=== PATIENT | female | born 1960 | race Caucasian/White ===

== ENCOUNTER 2024-01-22 05:35 | Day surgery (SDC) | payer OTHER ==
[~2024-01-22] VITALS: Ht 154.9 cm; Wt 92.7 kg
[2024-01-22] MEDS ORDERED: ACETAMINOPHEN 500 MG TABLET ONE (05:41)
[2024-01-22] MEDS ORDERED: CELECOXIB 100 MG CAPSULE ONE (05:42)
[2024-01-22] MEDS ORDERED: SCOPOLAMINE HYDROBROMIDE 1 MG PATCH .72 H (TRANSDERM-SCOP) TD ONE (05:43)
[2024-01-22] MEDS ORDERED: GABAPENTIN 300 MG CAPSULE ONE (05:43)
[2024-01-22] MEDS ORDERED: oxyCODONE HCL 10 MG TAB.ER.12H PO ONE (05:44)
[2024-01-22] MEDS: ACETAMINOPHEN 500 MG TABLET PO ONE (06:05)
[2024-01-22] MEDS: CELECOXIB 100 MG CAPSULE PO ONE (06:05)
[2024-01-22] MEDS: SCOPOLAMINE HYDROBROMIDE 1 MG PATCH .72 H (TRANSDERM-SCOP) TD ONE (06:05)
[2024-01-22] MEDS: GABAPENTIN 300 MG CAPSULE PO ONE (06:05)
[2024-01-22] MEDS ORDERED: NS 1000 ML IV.SOLN IV ONE (06:50)
[2024-01-22] MEDS ORDERED: TRANEXAMIC ACID 1,000 MG/10 ML VIAL ONE (06:50)
[2024-01-22] MEDS ORDERED: VANCOMYCIN HCL 1000 MG/VIAL IV ONE (06:50)
[2024-01-22] MEDS ORDERED: LR 1,000 ML IV.SOLN IV ONE (06:50)
[2024-01-22] MEDS ORDERED: BUPIVACAINE /PF 0.25% 10 ML VIAL INJ ONE (06:50)
[2024-01-22] MEDS ORDERED: LIDOCAINE 1% *INHALATION* MPF 5 ML VIAL INH ONE (06:50)
[2024-01-22] MEDS ORDERED: NS IRRIG SOLN 1000 ML IR ONE (06:50)
[2024-01-22] MEDS ORDERED: PROPOFOL 200MG/ 20ML VIAL (DIPRIVAN) IV ONE (06:50)
[2024-01-22] MEDS ORDERED: fentaNYL CITRATE/PF 100 MCG/2 ML AMP ONE (06:58)
[2024-01-22] MEDS ORDERED: MIDAZOLAM HCL 5 MG/5 ML VIAL ONE (06:59)
[2024-01-22] MEDS ORDERED: CEFAZOLIN SOD 2 GM in D5W 50 ML IV ONE (07:00)
[2024-01-22] MEDS: oxyCODONE HCL 10 MG TAB.ER.12H PO ONE (07:02)
[2024-01-22] MEDS ORDERED: DIPHENHYDRAMINE HCL 25 MG CAPSULE PO PRN (09:00)
[2024-01-22] MEDS ORDERED: METOCLOPRAMIDE HCL 10 MG/2 ML VIAL IVP PRN ×2 (09:00→09:15)
[2024-01-22] MEDS ORDERED: BISACODYL 10 MG/SUPPOSITORY RC PRN (09:00)
[2024-01-22] MEDS ORDERED: LACTULOSE 20 GM/30 ML UDC PO PRN (09:00)
[2024-01-22] MEDS ORDERED: LABETALOL 100 MG/ 20ML VIAL IVP PRN (09:15)
[2024-01-22] MEDS ORDERED: HYDROmorphone 1 MG/ML INJ. CARTRIDGE IVP PRN ×3 (09:15→11:00)
[2024-01-22] MEDS ORDERED: ONDANSETRON HCL 4 MG/2 ML VIAL IVP PRN ×2 (09:15→11:45)
[2024-01-22] MEDS ORDERED: ePHEDrine sulfate 50 MG/ML VIAL IVP PRN (09:15)
[2024-01-22] MEDS ORDERED: oxyCODONE HCL 5 MG TABLET PO PRN ×2 (11:00)
[2024-01-22] MEDS ORDERED: traMADol HCL HCL 50 MG TABLET (ULTRAM) PO PRN (11:00)
[2024-01-22] MEDS ORDERED: LORATADINE 10 MG TABLET PO PRN (11:00)
[2024-01-22] MEDS ORDERED: ceFAZolin SODIUM 2 GM in D5W 50 ML IV SCH (11:15)
[2024-01-22 11:29] VITALS: BP_SYST 124; PULSE 56; RESP 20; TEMP 98.5; O2SAT 99
[2024-01-22] MEDS ORDERED: HYDROmorphone 1 MG/ML INJ. CARTRIDGE ONE ×3 (11:32→15:35)
[2024-01-22] MEDS: HYDROmorphone 1 MG/ML INJ. CARTRIDGE IVP PRN ×3 (11:32→15:35)
[2024-01-22] MEDS: TAMSULOSIN HCL 0.4 MG CAP PO ONE (11:40)
[2024-01-22] MEDS ORDERED: ACETAMINOPHEN 500 MG TABLET PO SCH (14:00)
[2024-01-22] MEDS ORDERED: KETOROLAC TROMETHAMINE 10 MG TABLET (TORADOL) PO SCH (14:00)
[2024-01-22] MEDS ORDERED: SENNOSIDES/DOCUSATE SODIUM 1 TAB TABLET(SENOKOT-S) PO SCH (21:00)
[2024-01-23] MEDS ORDERED: ASPIRIN 81 MG TAB.CHEW PO SCH (09:00)
[2024-01-23] MEDS ORDERED: CELECOXIB 200 MG CAPSULE PO SCH (11:00)
== END 2024-01-22 17:20 | disposition home or self-care (01) ==
LOC: SDS 05:35
PROVIDERS: ATTEND Student in an Organized Health Care Education/Training Program
DX: M17.12 Unilateral primary osteoarthritis, left knee (principal); M25.762 Osteophyte, left knee; G89.29 Other chronic pain; M25.562 Pain in left knee; F41.9 Anxiety disorder, unspecified; Z98.891 History of uterine scar from previous surgery; Z96.651 Presence of right artificial knee joint; Z98.890 Other specified postprocedural states; Z79.899 Other long term (current) drug therapy; Z87.891 Personal history of nicotine dependence; Z80.1 Family history of malignant neoplasm of trachea, bronchus and lung
CPT/HCPCS: 87081; 27447; 97162; 64447; 73560; 97110; 97112; 97530; 97116; 88305; 88311; J3490 ×2; J0690; J0696; J2001; J2250; J2704; J3370; J3010; J1170; J7060 ×2; J7120; J7030; C1776 ×3; C1713